=== PATIENT | female | born 1975 | race Caucasian/White ===

== ENCOUNTER → 2017-02-13 | Outpatient (CLI) | payer BC ==
[~2017-02-13] MED LIST: BACTRIM DS TABL1 TA1 PO; BACTROBAN15 GM TOP; CLEOCIN; DICLOFENAC; FLEXERIL10 MG PO; NAPROXEN250 MG PO; NO MEDICATIONS; PRENATAL MULITV1 TAB PO
--- NOTE | ~2017-02-13 | US128 ---
[id number] [address] [address] [id number] O MR#: [id number] #: [id number] NAME: GERARDO IBARRA : 1975 SEX: F STUDY DATE/TIME: 02/13/2017 8:10 UNIT: [facility] ROOM: STUDY DESCRIPTION: US Thyroid Attending Physician: Kwan Floyd M.D. Referring Physician: Kwan Floyd M.D. Ordering Physician: Kwan Floyd M.D. Primary Care Physician: Diann Kohler M.D. MEDICAL IMAGING REPORT This report is preliminary unless electronic signature is present. EXAMINATION Thyroid ultrasound. DATE 02/13/2017 HISTORY History of thyroid nodules. Goiter. COMPARISON Thyroid ultrasound, 09/09/2012. FINDINGS The right thyroid lobe measures 1.8 x 2.2 x 4.4 cm. The isthmus measures 5 mm thickness. The left thyroid lobe measures 1.8 x 2 x 4.6 cm. There are a few small hypoechoic nodules within both thyroid lobes. Within the right thyroid lobe, a single hypoechoic nodule is demonstrated medially within the right mid thyroid lobe measuring 3 x 3 x 5 mm. This is not thought to represent the same nodule measured on the 09/09/2012 examination, but has a benign appearance. The previously seen right lower thyroid pole nodule measuring 7 mm is not apparent on the current exam. A single hypoechoic solid-appearing nodule in the left mid thyroid lobe measures 3.7 x 5.1 x 6.8 mm compared to 5.7 x 4 x 3.1 mm on 09/09/2012 and is not thought to be significantly changed. A hypoechoic solid-appearing nodule within the posterior left [id number] thyroid pole measures 3.7 x 5.1 x 5.2 mm, on the previous study measured approximately 6 x 7 x 3.7 mm, and may be slightly smaller. A tiny hypoechoic nodule is demonstrated within the left mid thyroid lobe, appears nearly cystic, measuring only 2.2 x 3.3 x 4.2 mm, without clear correlate on the previous ultrasound. Of note, the complex cystic nodule documented on the 09/09/2012 examination, which measured up to 1.4 x 1 x 1 cm, is no longer evident. IMPRESSION 1. Thyroid gland size is within normal limits. There are small nodules within both thyroid lobes which have a benign sonographic appearance and do not warrant fine-needle aspiration according to Society of Radiologists and ultrasound criteria. 2. The complex cystic nodule seen within the left thyroid lobe on the 09/09/2012, which measured 1.4 cm, is no longer visible today. Dictated by... Sarai Rivera M.D. THIS IS AN ELECTRONICALLY VERIFIED REPORT Sarai Rivera M.D. at 02/13/2017 4:35 PM [facility] TD: 02/13/2017 13:10 JOB #: [id number] MEDICAL IMAGING REPORT Page 1 of 1
[2017-02-13 09:29] LABS: THYROID STIMULATING HORMONE 1.29 uIU/ml (0.34-5.60)
[2017-02-13 11:09] LABS: FREE THYROXIN (T4) 0.74 ng/dL (0.58-1.64)
== END | disposition home or self-care (01) ==
LOC: SGUS 07:51
PROVIDERS: Specialist
DX: E04.1 Nontoxic single thyroid nodule (principal); E04.2 Nontoxic multinodular goiter
CPT/HCPCS: 36415; 76536; 84439; 84443